=== PATIENT | male | born 1995 | race Caucasian/White ===

== ENCOUNTER 2021-08-31 21:35 | Emergency (ER) | payer SELFPAY ==
[2021-08-31 21:51] VITALS: BP 147/88; PULSE 110; RESP 16; TEMP 36.9; O2SAT 98
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
--- NOTE | 2021-08-31 22:04 | XRR_ITS ---
PROCEDURE INFORMATION: Exam: XR Cervical Spine Exam date and time: 08/31/2021 10:04 PM Age: 25 years old Clinical indication: Neck pain TECHNIQUE: Imaging protocol: XR of the cervical spine. Views: 2 or 3 views. COMPARISON: No relevant prior studies available. FINDINGS: Bones/joints: Mild upper cervical levoscoliosis. Soft tissues: Calcified left hilar nodes and/or mediastinal nodes and/or lung granulomas consistent with old granulomatous disease. XR/XR cervical spine 3V* [id number] IMPRESSION: No acute C-spine findings. Radiation Dose CTDIVOL = (mGy): DLP = (mGy-cm)
[2021-08-31 22:56] VITALS: RESP 17
--- NOTE | 2021-08-31 22:56 | PC.NURSE ---
pt states his neck popped and he had 4 panic attacks form the radiating pain.
--- NOTE | 2021-09-05 11:28 | DCPLANNER ---
education managers had message to speak with patient about getting established with a primary care physician. education managers called phone number [phone], unable to speak with patient at this time, and unable to leave a voicemail.
== END 2021-08-31 22:57 | disposition home or self-care (01) ==
PROVIDERS: Emergency Provider Nurse Practitioner Family
DX: M54.2 Cervicalgia (principal)
CPT/HCPCS: 72040; 99282